=== PATIENT | female | born 1945 | race Caucasian/White ===

== ENCOUNTER 2016-09-12 14:29 | Emergency (ER) | payer MEDICARE, SELFPAY ==
[2016-09-12 15:45] LABS: BASO % 0.1 % (0.1-1.2); EOS # 0.1 10_X3_uL (0.0-0.4); EOS % 1.2 % (0.7-5.8); GRAN # 5.6 10_X3_uL (1.6-6.1); GRAN % 68.8 % (34.0-71.1); HEMOGLOBIN 8.7 g/dL (11.2-15.7); LYMPH # 1.5 10_X3_uL (1.2-3.7); LYMPH % 18.8 % (19.3-51.7); MEAN CORPUSCULAR HEMOGLOBIN 29.5 pg (27.0-33.0); MEAN CORPUSCULAR HGB CONC 32.2 g/dL (32.0-36.0); MEAN CORPUSCULAR VOLUME 91.5 fL (79-95); MEAN PLATELET VOLUME 9.4 fl (7.5-11.5); MONO # 0.9 10_X3_uL (0.2-0.9); MONO % 11.1 % (4.7-12.5); PLATELET COUNT 220 x10_3/uL (182-369); RED BLOOD COUNT 2.95 x10_6/uL (3.9-5.2); RED CELL DISTRIBUTION WIDTH 17.6 % (11.7-14.4); WHITE BLOOD COUNT 8.1 x10_3/uL (4.0-10.0)
[2016-09-12 16:06] LABS: ALBUMIN 3.3 gm/dL (3.4-5.0); ALKALINE PHOSPHATASE 72 U/L (50-136); ALT/SGPT 6 U/L (3.5-33.9); AST/SGOT 13 U/L (7.04-26.96); BILIRUBIN,TOTAL < 0.15 mg/dL (0.0-1.0); BLOOD UREA NITROGEN 46 mg/dL (7-18); CALCIUM 8.8 mg/dL (8.7-10.7); CARBON DIOXIDE 15 mmol/L (21-32); CREATINE KINASE 15 U/L (21-215); CREATININE 2.9 mg/dL (0.6-1.3); GLUCOSE,RANDOM 113 mg/dL (70-99); SODIUM 133 mmol/L (136-145); TOTAL PROTEIN 5.7 gm/dL (6.4-8.2)
[2016-09-12 16:07] LABS: POTASSIUM 5.8 mmol/L (3.5-5.1)
[2016-09-12 16:57] LABS: URINE BILIRUBIN 3+ (NEGATIVE); URINE BLOOD TRACE (NEGATIVE); URINE GLUCOSE (UA) NORMAL (NORMAL); URINE KETONE TRACE (NEGATIVE); URINE LEUKOCYTE ESTERASE 2+ (NEGATIVE); URINE NITRATE NEGATIVE (NEGATIVE); URINE PROTEIN 1+ (NEGATIVE); UROBILINOGEN NORMAL mg/dL (<1.0)
[2016-09-12 17:09] LABS: URINE BACTERIA 3+ (NONE SEEN); URINE RBC 0-5 /[HPF] (0-2); URINE RENAL EPITHELIAL CELLS RARE /[HPF] (NONE SEEN); URINE WBC >15 /[HPF] (0-5)
== END 2016-09-12 18:59 | disposition short-term general hospital (02) ==
LOC: ER 14:29
PROVIDERS: General Practice
DX: A41.9 Sepsis, unspecified organism (principal); I48.91 Unspecified atrial fibrillation; N28.9 Disorder of kidney and ureter, unspecified; R00.1 Bradycardia, unspecified; I50.9 Heart failure, unspecified; N18.9 Chronic kidney disease, unspecified; E87.5 Hyperkalemia; D64.9 Anemia, unspecified; N39.0 Urinary tract infection, site not specified; J44.9 Chronic obstructive pulmonary disease, unspecified; K92.1 Melena; J84.9 Interstitial pulmonary disease, unspecified; I51.7 Cardiomegaly; E66.01 Morbid (severe) obesity due to excess calories; R47.81 Slurred speech; R53.1 Weakness; E11.22 Type 2 diabetes mellitus with diabetic chronic kidney disease; I70.90 Unspecified atherosclerosis; R06.02 Shortness of breath; Z99.81 Dependence on supplemental oxygen; G89.29 Other chronic pain; Z88.0 Allergy status to penicillin; Z79.899 Other long term (current) drug therapy; Z79.891 Long term (current) use of opiate analgesic; Z79.84 Long term (current) use of oral hypoglycemic drugs
CPT/HCPCS: 36415; 51702; 71010; 80053; 81001; 82550; 82553; 83605; 83880; 85025; 87040; 87086; 87186; 93005; 94664; 96361; 96365; 96368; 96375; 99070; 99285; 99285-25; G0328-QW